=== PATIENT | male | born 1990 | race Caucasian/White ===

== ENCOUNTER 2025-04-23 02:15 | Emergency (ER) | payer BC, OTHER ==
[2025-04-23] MEDS ORDERED: Sodium Chloride 0.9% 10 ML Syringe FLUSH PRN (02:41)
[2025-04-23] MEDS: Adenosine 12 MG/4 ML SDV ONE (02:46)
[2025-04-23 02:49] LABS: BASOPHILS ABSOLUTE AUTO 0.1 K/mm3 (0.0-0.2); BASOPHILS PERCENT AUTO 0.7 % (0.0-1.0); EOSINOPHILS ABSOLUTE AUTO 0.2 K/mm3 (0.0-0.4); EOSINOPHILS PERCENT AUTO 1.5 % (0.0-6.0); IMMATURE GRAN ABSOLUTE AUTO 0.03 K/mm3 (0.00-0.05); IMMATURE GRAN PERCENT AUTO 0.3 % (0.0-0.4); LYMPHOCYTES ABSOLUTE AUTO 2.7 K/mm3 (1.0-4.8); LYMPHOCYTES PERCENT AUTO 24.4 % (24.0-44.0); MEAN PLATELET VOLUME 10.4 fl (9.4-12.4); MONOCYTES ABSOLUTE AUTO 1.2 K/mm3 (0.0-0.8); MONOCYTES PERCENT AUTO 10.6 % (0.0-8.0); NEUTROPHILS ABSOLUTE AUTO 6.9 K/mm3 (1.8-7.7); NEUTROPHILS PERCENT AUTO 62.5 % (41.0-71.0); NRBC ABSOLUTE 0.00 (0.00-0.02); NRBC PERCENT 0.0 % (0.0-0.2); PLATELET COUNT,PLT 326 K/mm3 (150-400); RED BLOOD CELL COUNT 5.92 M/mm3 (4.52-5.90); WHITE BLOOD CELL COUNT,WBC 10.96 K/mm3 (3.9-11.3)
[2025-04-23 03:18] LABS: BUPRENORPHINE SCREEN,URINE NEGATIVE (CUTOFF=10); METHADONE SCREEN, URINE NEGATIVE (CUT0FF=200); METHAMPHETAMINES SCREEN, URINE NEGATIVE (CUTOFF=500); OXYCODONE SCREEN,URINE NEGATIVE (CUT0FF=100); THC SCREEN,URINE 20 NG/ML NEGATIVE (CUTOFF=50)
[2025-04-23 03:20] LABS: A/G RATIO 0.9 (1-2); ALANINE AMINOTRANSFERASE,ALT 77.0 U/L (16-63); ASPARTATE AMNIOTRANSFERASE,AST 56.0 U/L (15-37); BILIRUBIN TOTAL 0.2 mg/dL (0.2-1.0); BLOOD UREA NITROGEN,BUN 8.0 mg/dL (7-18); CARBON DIOXIDE,CO2 29.0 mEq/L (21-32); CHLORIDE,CL 101.0 mEq/L (98-107); CREATININE 1.3 mg/dL (0.7-1.3); EST CRCL DRUG DOSING (CG) 75.27 mL/min; ESTIMATED GFR 73.0 mL/min (>60); GLUCOSE RANDOM 150.0 mg/dL (70-99); POTASSIUM,K 3.4 mEq/L (3.5-5.1); PROTEIN TOTAL,TP 7.8 g/dl (6.4-8.2); SODIUM,NA 138.0 mEq/L (136-145); TROPONIN I HIGH SENSITIVITY 26.0 pg/mL (<=76); TSH 3.619 uIU/mL (0.358-3.74)
[2025-04-23 03:22] LABS: ETHANOL BLOOD MEDICAL 0.0 gm% (0.00)
[2025-04-23 03:28] LABS: AMPHETAMINES SCREEN, URINE NEGATIVE (CUTOFF=500)
[2025-04-23] MEDS: Magnesium Sulfate 2 GM/50 mL 2 GM in Premix Bag 1 BAG IV ONE (04:28)
[2025-04-23 06:40] VITALS: BP 132/82; PULSE 92
== END 2025-04-23 06:35 | disposition home or self-care (01) ==
LOC: JD.ED 02:15
DX: I47.10 Supraventricular tachycardia, unspecified (principal); I10 Essential (primary) hypertension; Z79.899 Other long term (current) drug therapy
CPT/HCPCS: 36415; 71045; 80053; 80306; 80307; 83735; 84443; 84484; 85025; 93005; 96361; 96365; 96375; 99285; A9270; J0153; J3475; J7030